=== PATIENT | female | born 1960 | race African-American/Black ===

== ENCOUNTER → 2016-05-26 | Day surgery (SDC) | payer OTHER ==
[~2016-05-26] VITALS: Ht 175.3 cm; Wt 159.3 kg
[2016-05-26 10:06] LABS: HCT 33.9 % (37.0-47.0); HGB 11.9 g/dl (12.5-16.0); MCH 27.6 pg (25.0-31.0); MCHC 35.1 g/dL (32.0-36.0); MCV 78.7 fL (78.0-100.0); MPV 10.5 fL (6.0-9.5); RBC 4.31 M/uL (4.20-5.40); RDW 13.7 % (11.5-14.0); WBC 6.7 K/uL (4.0-10.5)
[2016-05-26 10:16] LABS: INR 1.04 (0.9-1.2); PROTHROMBIN TIME 13.2 SECONDS (11.7-14.0); PTT 26.2 SECONDS (23.2-31.4)
[2016-05-26 10:22] LABS: BILIRUBIN - TOTAL 0.4 mg/dL (0.1-1.0); CREATININE 0.8 mg/dL (0.5-1.0); GLOBULIN (CALCULATION) 3.6 g/dL (2.2-4.2); POTASSIUM 3.9 mmol/L (3.5-5.1); TOTAL PROTEIN 7.6 g/dL (6.4-8.3)
[2016-05-26 10:41] LABS: TSH (THYROID STIM HORMONE) 0.063 uIU/mL (0.270-4.200)
[2016-05-26 10:44] LABS: FOLIC ACID (SERUM) 13.5 ng/mL (4.4-31.0)
[2016-05-26 10:46] LABS: VITAMIN D (25-OH) 16.11 ng/mL
== END | disposition home or self-care (01) ==
LOC: FAS 08:15
PROVIDERS: Surgery
DX: K29.50 Unspecified chronic gastritis without bleeding (principal); K21.9 Gastro-esophageal reflux disease without esophagitis; K58.9 Irritable bowel syndrome, unspecified; I10 Essential (primary) hypertension; D25.9 Leiomyoma of uterus, unspecified; E11.9 Type 2 diabetes mellitus without complications; E03.9 Hypothyroidism, unspecified; E78.5 Hyperlipidemia, unspecified; E66.01 Morbid (severe) obesity due to excess calories; Z68.43 Body mass index [BMI] 50.0-59.9, adult; Z85.850 Personal history of malignant neoplasm of thyroid; Z90.89 Acquired absence of other organs; Z98.890 Other specified postprocedural states; Z82.49 Family history of ischemic heart disease and other diseases of the circulatory system; Z84.1 Family history of disorders of kidney and ureter; Z83.49 Family history of other endocrine, nutritional and metabolic diseases; Z79.899 Other long term (current) drug therapy
CPT/HCPCS: 36415; 80053; 80061; 82306; 82607; 82728; 82746; 83036; 83540; 83550; 84425; 84443; 85610; 85730; 88305; J2704

== ENCOUNTER → 2020-07-09 | Day surgery (SDC) | payer MEDICARE, OTHER ==
[~2020-07-09] MED LIST: ARMOUR THYROID15 MG PO; ARMOUR THYROID90 MG PO; BIOTIN 800 MCG1 EACH PO; CYTOMEL25 MCG PO; FOLIC ACID1 MG PO; IRON18 MG PO; METHOCARBAMOL500 MG PO; OMEPRAZOLE40 MG PO; VITAMIN B-121000 MC1 PO; WEEKLY-D1250 MCG PO; ZINC50 M3 PO; ZOFRAN4 MG PO
[2020-07-09 07:12] LABS: HCT 34.8 % (37.0-47.0); HGB 12.4 g/dl (12.5-16.0); MCH 29.2 pg (25.0-31.0); MCHC 35.6 g/dL (32.0-36.0); MCV 81.9 fL (78.0-100.0); MPV 10.7 fL (6.0-9.5); RBC 4.25 M/uL (4.20-5.40); RDW 14.4 % (11.5-14.0); WBC 6.1 K/uL (4.0-10.5)
== END | disposition home or self-care (01) ==
LOC: FAS 06:30
PROVIDERS: Anesthesiology
DX: K58.9 Irritable bowel syndrome, unspecified (principal); K21.9 Gastro-esophageal reflux disease without esophagitis; K29.70 Gastritis, unspecified, without bleeding; K44.9 Diaphragmatic hernia without obstruction or gangrene; K64.8 Other hemorrhoids; K64.4 Residual hemorrhoidal skin tags; M19.90 Unspecified osteoarthritis, unspecified site; E03.9 Hypothyroidism, unspecified; G47.33 Obstructive sleep apnea (adult) (pediatric); Z98.84 Bariatric surgery status; Z20.822 Contact with and (suspected) exposure to COVID-19; Z86.2 Personal history of diseases of the blood and blood-forming organs and certain disorders involving the immune mechanism; Z83.79 Family history of other diseases of the digestive system; Z90.49 Acquired absence of other specified parts of digestive tract; Z86.69 Personal history of other diseases of the nervous system and sense organs; Z98.890 Other specified postprocedural states
CPT/HCPCS: 36415; 88305; J2704; J7120